=== PATIENT | female | born 2000 | race Hispanic/Latino ===

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

== ENCOUNTER 2018-04-11 02:30 | Emergency (ER) | payer MEDICAID, OTHER ==
[2018-04-11 03:12] LABS: BASOPHILS % (AUTO) 0.8 % (0.0-5.0); EOSINOPHILS % (AUTO) 1.7 % (0.0-8.0); HEMATOCRIT 41.1 % (36-48); MEAN CORPUSCULAR HEMOGLOBIN 28.8 pg (27.0-33.0); MEAN CORPUSCULAR HGB CONC 33.2 g/dL (32.0-36.0); MEAN CORPUSCULAR VOLUME 86.6 fL (80-100); NEUTROPHILS % (AUTO) 63.5 % (40.0-77.0); NUCLEATED RED BLOOD CELLS 0.1 % (0.0-0.19); PLATELET COUNT (AUTO) 341 K/uL (130-400); RED BLOOD CELL COUNT(AUTO) 4.74 MIL/uL (4.00-5.50); RED CELL DISTRIBUTION WIDTH 13.5 % (11.0-15.5); WHITE BLOOD COUNT (AUTO) 9.7 K/uL (4.8-10.8)
[2018-04-11 03:16] LABS: CREATININE 0.7 mg/dL (0.5-1.5); POTASSIUM 4.1 mmol/L (3.5-5.1)
[2018-04-11 03:21] LABS: ALBUMIN 3.9 g/dL (3.5-5.0); BILIRUBIN,TOTAL 0.2 mg/dL (0.2-1.0); TOTAL PROTEIN, SERUM 8.3 g/dL (6.0-8.3)
[2018-04-11 03:43] LABS: APPEARANCE,URINE Cloudy (CLEAR); BILIRUBIN,URINE Negative (NEGATIVE); COLOR,URINE Yellow (YELLOW); GLUCOSE, URINE (UA) Negative (NEGATIVE); KETONES,URINE Negative (NEGATIVE); LEUKOCYTE ESTERASE ,URINE Small (NEGATIVE); NITRATE,URINE Negative (NEGATIVE); OCCULT BLOOD,URINE Negative (NEGATIVE); PROTEIN,URINE Negative (NEGATIVE); UROBILINOGEN,URINE 0.2 mg/dL (0.2-1.0)
[2018-04-11 03:45] LABS: HCG,QUAL RESULT NEGATIVE (NEGATIVE)
[2018-04-11 03:50] LABS: AMPHET/METH SCREEN,URINE NEGATIVE (NEGATIVE); BARBITURATE SCREEN, URINE NEGATIVE (NEGATIVE); BENZODIAZEPINES SCREEN,URINE NEGATIVE (NEGATIVE); CANNABINOID SCREEN,URINE NEGATIVE (NEGATIVE); COCAINE SCREEN,URINE NEGATIVE (NEGATIVE); OPIATE SCREEN,URINE NEGATIVE (NEGATIVE); PHENCYCLIDINE SCREEN,URINE NEGATIVE (NEGATIVE)
[2018-04-11 04:02] LABS: BACTERIA,URINE Moderate /HPF (None Seen); RBC,URINE None Seen /HPF (0-1); SQUAMOUS EPITHELIAL CELL,UR Moderate /HPF (0-2)
== END 2018-04-11 04:56 | disposition home or self-care (01) ==
LOC: EDH 02:30
DX: G40.802 Other epilepsy, not intractable, without status epilepticus (principal); B85.0 Pediculosis due to Pediculus humanus capitis
CPT/HCPCS: 36415; 80053; 80305; 81001; 81025; 85025

== ENCOUNTER 2018-08-29 11:52 | Emergency (ER) | payer SELFPAY ==
[2018-08-29] MEDS ORDERED: LEVETIRACETAM 500 MG/5 ML SD VIAL IV ONE (14:10)
== END 2018-08-29 15:12 | disposition home or self-care (01) ==
LOC: EDH 11:52
DX: G40.909 Epilepsy, unspecified, not intractable, without status epilepticus (principal)
CPT/HCPCS: 81025; 96365; 99284; J1953

== ENCOUNTER 2019-02-23 12:46 | Emergency (ER) | payer OTHER ==
[2019-02-23 13:21] LABS: BASOPHILS % (AUTO) 0.5 % (0.0-5.0); HEMATOCRIT 39.6 % (36-48); LYMPHOCYTES % (AUTO) 19.9 % (21.0-51.0); MEAN CORPUSCULAR HEMOGLOBIN 29.2 pg (27.0-33.0); MEAN CORPUSCULAR HGB CONC 33.8 g/dL (32.0-36.0); MEAN CORPUSCULAR VOLUME 86.2 fL (80-100); MONOCYTES % (AUTO) 3.9 % (3.0-13.0); NEUTROPHILS % (AUTO) 74.7 % (40.0-77.0); PLATELET COUNT (AUTO) 319 K/uL (130-400); RED CELL DISTRIBUTION WIDTH 13.8 % (11.0-15.5); WHITE BLOOD COUNT (AUTO) 8.8 K/uL (4.8-10.8)
[2019-02-23 13:31] LABS: CREATININE 0.7 mg/dL (0.5-1.5); POTASSIUM 3.7 mmol/L (3.5-5.1)
[2019-02-23] MEDS ORDERED: SODIUM CHLORIDE 0.9% 1000ML 1,000 ML IV ONE (13:35)
[2019-02-23] MEDS ORDERED: LEVETIRACETAM 500 MG/5 ML SD VIAL IV ONE (13:40)
== END 2019-02-23 15:03 | disposition home or self-care (01) ==
LOC: EDH 12:46
DX: G40.909 Epilepsy, unspecified, not intractable, without status epilepticus (principal); S01.512A Laceration without foreign body of oral cavity, initial encounter; M54.5 Low back pain; X58.XXXA Exposure to other specified factors, initial encounter; Y93.89 Activity, other specified; Y92.89 Other specified places as the place of occurrence of the external cause; Y99.8 Other external cause status
CPT/HCPCS: 36415; 70450; 72100; 80048; 84702; 85025; 96365; 99285; J1953; J7030

== ENCOUNTER 2019-06-08 09:26 | Emergency (ER) | payer OTHER ==
[2019-06-08 10:11] LABS: EOSINOPHILS % (AUTO) 1.4 % (0.0-8.0); LYMPHOCYTES % (AUTO) 25.5 % (21.0-51.0); MEAN CORPUSCULAR HEMOGLOBIN 27.7 pg (27.0-33.0); MEAN CORPUSCULAR HGB CONC 32.1 g/dL (32.0-36.0); MEAN CORPUSCULAR VOLUME 86.2 fL (80-100); MONOCYTES % (AUTO) 5.1 % (3.0-13.0); NEUTROPHILS % (AUTO) 63.4 % (40.0-77.0); PLATELET COUNT (AUTO) 410 K/uL (130-400); RED BLOOD CELL COUNT(AUTO) 4.99 MIL/uL (4.00-5.50); RED CELL DISTRIBUTION WIDTH 13.2 % (11.0-15.5); WHITE BLOOD COUNT (AUTO) 9.8 K/uL (4.8-10.8)
[2019-06-08 10:12] LABS: APPEARANCE,URINE Clear (CLEAR); BILIRUBIN,URINE Negative (NEGATIVE); COLOR,URINE Yellow (YELLOW); GLUCOSE, URINE (UA) Negative (NEGATIVE); KETONES,URINE Negative (NEGATIVE); LEUKOCYTE ESTERASE ,URINE Negative (NEGATIVE); NITRATE,URINE Positive (NEGATIVE); OCCULT BLOOD,URINE Negative (NEGATIVE); PROTEIN,URINE POS 1+ mg/dL (NEGATIVE); UROBILINOGEN,URINE 0.2 mg/dL (0.2-1.0)
[2019-06-08 10:16] LABS: HCG,QUAL RESULT NEGATIVE (NEGATIVE)
[2019-06-08 10:21] LABS: AMPHET/METH SCREEN,URINE NEGATIVE (NEGATIVE); BARBITURATE SCREEN, URINE NEGATIVE (NEGATIVE); BENZODIAZEPINES SCREEN,URINE NEGATIVE (NEGATIVE); CANNABINOID SCREEN,URINE NEGATIVE (NEGATIVE); COCAINE SCREEN,URINE NEGATIVE (NEGATIVE); CREATININE 0.6 mg/dL (0.5-1.5); OPIATE SCREEN,URINE NEGATIVE (NEGATIVE); PHENCYCLIDINE SCREEN,URINE NEGATIVE (NEGATIVE)
[2019-06-08 10:26] LABS: ALBUMIN 3.9 g/dL (3.5-5.0); BILIRUBIN,TOTAL 0.2 mg/dL (0.2-1.0); TOTAL PROTEIN, SERUM 8.2 g/dL (6.0-8.3)
[2019-06-08 10:27] LABS: BACTERIA,URINE Few /HPF (None Seen); MUCUS,URINE Few LPF (None Seen); RBC,URINE 0-1 /HPF (0-1); SQUAMOUS EPITHELIAL CELL,UR Few /HPF (0-2)
[2019-06-08] MEDS ORDERED: CEPHALEXIN 500 MG CAPSULE ONE (11:52)
[2019-06-08] MEDS ORDERED: LEVETIRACETAM 500 MG TABLET PO ONE (11:52)
== END 2019-06-08 12:12 | disposition home or self-care (01) ==
LOC: EDH 09:26
DX: G40.89 Other seizures (principal); N39.0 Urinary tract infection, site not specified
CPT/HCPCS: 36415; 80053; 80177; 80305; 81001; 81025; 85025; 87088

== ENCOUNTER 2024-06-29 16:51 | Emergency (ER) | payer BC ==
[~2024-06-29] VITALS: Ht 149.9 cm; Wt 81.6 kg
--- NOTE | 2024-06-29 16:59 | NUR ---
PT PLACED IN ED BED 16 AND [employer] STUDENT ACCOUNTS COORDINATOR PLACING SEIZURE PADS ON RAILS X 2
--- NOTE | 2024-06-29 17:06 | ERN ---
General Chief Complaint: Seizure Stated Complaint: POSSIBLE SEIZURE Time Seen by MD: 16:54 History of Present Illness Initial Comments 23-year-old female, history of seizure disorder, presents for seizure. Patient had a witnessed grand mal seizure while at work today. It sounds like she may have had one or two more seizures all brief. EMS reports that she was postictal on arrival. Oxygen by the time she came here to the ER, she was a GCS of 15. She reports mild headache, which she says is normal for her after having sei zures. She denies any recent illness. She takes 1000 mg of Keppra b.i.d.. She has been compliant with the medications. She does not have a neurologist currently. She denies any trauma. Allergies: Coded Allergies: No Known Allergies (Unverified Allergy, Unknown, 02/23/19) Past Medical History Past Medical History: Seizure Past Surgical History: None ROS Dictation CONSTITUTIONAL: No chills, no fever, no weakness, no diaphoresis, no malaise. HEAD/FACE: No signs of trauma. EENT: No eye pain, no blurred vision, no tearing, no double vision, no ear pain, no ear discharge, no nose pain, no nasal congestion, no throat pain, no throat swelling, no mouth pain. RESPIRATORY: No cough, no orthopnea, no SOB, no stridor, no wheezing. CARDIOVASCULAR: No chest pain, no edema, no palpitations, no syncope. GASTROINTESTINAL/ABDOMINAL: No abdominal pain, no constipation, no diarrhea, no nausea, no vomiting. GENITOURINARY: No abnormal discharge, no dysuria, no frequent urination, no hematuria. No complaints of pain in the genitals. MUSCULOSKELETAL: No back pain, no gout, no joint pain, no joint swelling, no muscle pain, no muscle stiffness, no neck pain. INTEGUMENTARY: No change in color, no change in hair/nails, no dryness, no lesion, no lumps, no rash. NEUROLOGICAL/PSYCH: Seizure HEMATOLOGIC/LYMPHATIC: Not anemic, no history of blood clots, no apparent bleeding, no bruising, glands not swollen. All Systems Negative, Except as Noted. Physical Exam Physical Exam Dictation VITAL SIGNS: Reviewed. GENERAL APPEARANCE: Alert, oriented x3, no acute distress, obese. HEAD AND FACE: Non-traumatic. EYES: PERRL, pink conjunctivas, eyelid no trauma, anterior chamber clear. EARS: Pinnas intact and no signs of trauma or erythema. Ear canals clear and no discharge. TMs no erythema. NOSE: No discharge, no bleeding. OROPHARYNX: Mouth normal, teeth no caries, tongue pink. Pharynx clear, no erythema. Tonsils no exudates, no abscesses noted. Mucous membrane moist. NECK: Supple, non-tender, no thyromegaly, no masses, no JVD, no bruits. BREAST: Deferred. CHEST: No tenderness, no crepitus, no paradoxical movement, no retractions. LUNGS: Clear, well-ventilated, symmetric, no rales, no wheezing, no rhonchi, no stridor, good breath sounds bilaterally. HEART: Regular rate, regular rhythm, no murmur, no gallops. VASCULAR: No peripheral edema. ABDOMEN: Soft, positive bowel sounds, nondistended, no guarding, nontender, no rebound, no masses no hepatomegaly, no splenomegaly, no Rojsa's sign, no hernias. RECTAL: Deferred. GENITAL: Deferred. NEUROLOGICAL: Normal speech, gross motor function intact, gross sensory function intact. MUSCULOSKELETAL: Neck nontender, full range of motion, back nontender, full range of motion. EXTREMITIES: Nontender, full range of motion. SKIN: Color pink, dry, no turgor, no rash, no lacerations, no abrasions, no contusions. LYMPHATICS: Deferred. Results Laboratory and Microbiology Lab and Micro Result Laboratory Tests Test 06/29/24 17:13 White Blood Count 8.9 K/uL (4.8-10.8) Red Blood Count 4.42 MIL/uL (4.00-5.50) Hemoglobin 12.2 g/dL (12.0-16.0) Hematocrit 38.5 % (36-48) Mean Corpuscular Volume 87.1 fL (79-99) Mean Corpuscular Hemoglobin 27.6 pg (27.0-33.0) Mean Corpuscular Hemoglobin Concent 31.7 g/dL (32.0-36.0) L Red Cell Distribution Width 13.2 % (11.0-15.5) Platelet Count 311 K/uL (130-400) Mean Platelet Volume 9.9 fL (7.5-10.5) Immature Granulocyte % (Auto) 0.9 % (0-1) Neutrophils (%) (Auto) 61.2 % (40.0-77.0) Lymphocytes (%) (Auto) 29.2 % (21.0-51.0) Monocytes (%) (Auto) 7.1 % (3.0-13.0) Eosinophils (%) (Auto) 0.9 % (0.0-8.0) Basophils (%) (Auto) 0.7 % (0.0-5.0) Neutrophils # (Auto) 5.5 K/uL (1.8-7.7) Lymphocytes # (Auto) 2.6 K/uL (1.0-4.8) Monocytes # (Auto) 0.6 K/uL (0.1-1.0) Eosinophils # (Auto) 0.08 K/uL (0.00-0.70) Basophils # (Auto) 0.06 K/uL (0.00-0.20) Absolute Immature Granulocyte (auto 0.08 K/uL (0-1) Nucleated Red Blood Cells 0.0 % (0.0-0.19) Sodium Level 135 mmol/L (136-145) L Potassium Level 3.7 mmol/L (3.5-5.1) Chloride Level 104 mmol/L (101-111) Carbon Dioxide Level 28 mmol/L (21-32) Blood Urea Nitrogen 12 mg/dL (7-18) Creatinine 0.7 mg/dL (0.5-1.0) Glomerular Filtration Rate Calc 123 mL/min (>90) Random Glucose 89 mg/dL (70-105) Total Calcium 8.7 mg/dL (8.5-10.1) Troponin I High Sensitivity < 4 ng/L (4-50) L Human Chorionic Gonadotropin, Quant 0 mIU/mL (0-5) MDM CC: Seizure Historian: Patient Comorbidities: Seizure disorder Limitations by social determinants of health: No current neurologist Differential diagnosis: Breakthrough seizure, other. Vital signs stable Clinical exam is unremarkable. Cranial nerves are intact. Cardiac exam is normal. No clinical signs of heart failure. Patient's lab work ( CBC, BMP, troponin, hCG ) are negative/ normal per my independent interpretation. No imaging indicated Patient received 1 g of IV Keppra here in the ER. She was monitored for about 90 minutes. No further seizures. She was at baseline. She does have a significant seizure disorder, she was the seizures once a week. No signs of trauma or injury. At this point in time patient was safe for discharge. We will recommend the patient follows up with the PCP as needed for further treatment and evaluation. ED Course Orders Procedure Category Date Status Time Cbc With Differential LAB 06/29/24 Complete 16:57 Basic Metabolic Panel LAB 06/29/24 Complete 16:57 Hcg,Quantitative LAB 06/29/24 Complete 16:57 Urinalysis Profile LAB 06/29/24 Logged 16:57 Troponin I High LAB 06/29/24 Complete Sensitivity 16:57 12 Lead Ekg Tracing- EKG 06/29/24 Complete Technical 16:57 Levetiracetam 500 PHA 06/29/24 Complete Mg/5 M[address] V (Keppra 5 17:30 0.9%Nacl 1000ml (Ns PHA 06/29/24 Complete 1000ml) 17:00 Current Medications Medications (Trade) Dose Ordered Sig/Gabino Route PRN Reason Start Time Stop Time Status Last Admin Dose Admin Levetiracetam (kepPRA 500 MG/5 ML SD VIAL) 1,000 mg ONCE ONCE IV 06/29/24 17:30 06/29/24 17:31 DC 06/29/24 17:41 Sodium Chloride 1,000 ml @ 0 mls/hr ONCE ONCE IV 06/29/24 17:00 06/29/24 17:01 DC 06/29/24 17:40 Vital Signs Date Time Temp Pulse Resp B/P (MAP) Pulse Ox O2 Delivery O2 Flow Rate FiO2 06/29/24 16:52 99.1 76 25 117/73 97 Room Air 0 DX & DISP Disposition: Discharge Departure Impression: Primary Impression: Breakthrough seizure Condition: Stable Additional Instructions: You had a breakthrough seizure today. There are no dangerous findings on your workup. Your vital signs have been stable. Your blood work ( CBC, BMP, troponin, hCG) is unremarkable. Your EKG is normal. You received IV Keppra today in the ER. Please continue taking your Keppra prescription medication. As we discussed, you may need to follow up with a neurologist as an outpatient. Please return to the emergency department if you have any concerns. Referrals: SAMMI MARQUEZ (PCP) DOUGLAS CHRISTINA DO Jun 29, 2024 17:06
[2024-06-29 17:20] LABS: BASOPHILS # (AUTO) 0.06 K/uL (0.00-0.20); BASOPHILS % (AUTO) 0.7 % (0.0-5.0); EOSINOPHILS # (AUTO) 0.08 K/uL (0.00-0.70); EOSINOPHILS % (AUTO) 0.9 % (0.0-8.0); HEMATOCRIT 38.5 % (36-48); IMMATURE GRANULOCYTE ABSOLUTE 0.08 K/uL (0-1); LYMPHOCYTES # (AUTO) 2.6 K/uL (1.0-4.8); LYMPHOCYTES % (AUTO) 29.2 % (21.0-51.0); MEAN CORPUSCULAR HEMOGLOBIN 27.6 pg (27.0-33.0); MEAN CORPUSCULAR HGB CONC 31.7 g/dL (32.0-36.0); MEAN CORPUSCULAR VOLUME 87.1 fL (79-99); MONOCYTES # (AUTO) 0.6 K/uL (0.1-1.0); MONOCYTES % (AUTO) 7.1 % (3.0-13.0); NEUTROPHILS # (AUTO) 5.5 K/uL (1.8-7.7); NEUTROPHILS % (AUTO) 61.2 % (40.0-77.0); PLATELET COUNT (AUTO) 311 K/uL (130-400); RED BLOOD CELL COUNT(AUTO) 4.42 MIL/uL (4.00-5.50); RED CELL DISTRIBUTION WIDTH 13.2 % (11.0-15.5); WHITE BLOOD COUNT (AUTO) 8.9 K/uL (4.8-10.8)
[2024-06-29] MEDS: 0.9%NACL 1000ML 1,000 ML IV ONE (17:40)
[2024-06-29] MEDS: leveTIRACEtam 500 MG/5 ML SD VIAL IV ONE (17:41)
[2024-06-29 17:47] LABS: CREATININE 0.7 mg/dL (0.5-1.0); POTASSIUM 3.7 mmol/L (3.5-5.1)
--- NOTE | 2024-06-29 17:49 | EKG ---
[facility] Test Date: 2024-06-29 Test Time: 17:42:08 Pat Name: VANCE BRO Department: ED Room: Gender: F Host Coordinator: [id number] : 2000 Requested By: DOUGLAS CHRISTINA Order Number: [id number] Reading MD: Angel Hernandez Measurements Intervals [place] Rate: 73 P: 8 AK: 150 QRS: 27 QRSD: 85 T: -4 QT: 373 QTc: 411 Interpretive Statements Sinus rhythm No previous ECG available for comparison Electronically Signed On 06-30-2024 16:04:15 POLICY ISSUE CLERK by Angel Hernandez Please click the below link to view image of tracing.
[2024-06-29 18:36] VITALS: BP 126/70; PULSE 83; RESP 18; TEMP 98; O2SAT 97
== END 2024-06-29 19:21 | disposition home or self-care (01) ==
LOC: EDH 16:51
DX: G40.409 Other generalized epilepsy and epileptic syndromes, not intractable, without status epilepticus (principal); R10.2 Pelvic and perineal pain
CPT/HCPCS: 99284; 96365; 84484; 80048; 84702; 85025; 36415; 93005; J1953; J7030